=== PATIENT | female | born 1955 | race Caucasian/White ===

== ENCOUNTER → 2016-12-28 | Outpatient (CLI) | payer OTHER ==
[~2016-12-28] MED LIST: ALDACTONE25 MG PO; BACTRIM DS TAB1 EACH PO; LASIX 20 MG TAB20 MG PO; LIPITOR 20 MG T20 M1 PO
== END ==
LOC: RAD 14:03
DX: Z12.31 Encounter for screening mammogram for malignant neoplasm of breast (principal)

== ENCOUNTER → 2018-01-07 | Outpatient (CLI) | payer OTHER | LOC: RAD 11:07 | DX: Z12.31 Encounter for screening mammogram for malignant neoplasm of breast (principal) ==

== ENCOUNTER → 2019-01-10 | Outpatient (CLI) | payer OTHER | LOC: RAD 09:50 | DX: Z12.31 Encounter for screening mammogram for malignant neoplasm of breast (principal) ==

== ENCOUNTER → 2019-09-11 | Outpatient (CLI) | payer OTHER | LOC: CAT 10:27 | DX: Z13.6 Encounter for screening for cardiovascular disorders (principal); I25.10 Atherosclerotic heart disease of native coronary artery without angina pectoris; E78.00 Pure hypercholesterolemia, unspecified ==

== ENCOUNTER → 2020-01-27 | Outpatient (CLI) | payer OTHER | LOC: BC 09:46 | PROVIDERS: ATTEND Internal Medicine | DX: Z12.31 Encounter for screening mammogram for malignant neoplasm of breast (principal) ==

== ENCOUNTER → 2020-12-31 | Outpatient (CLI) | payer OTHER ==
[~2020-12-31] MED LIST changes: +BAYER CHEWABLE81 MG PO; +HYDROCODON-ACE1 EAC7 PO; +KEFLEX750 MG PO; +LASIX 80 MG TAB80 MG PO; +LIPITOR10 MG PO; +MS CONTIN15 MG PO; +PRESERVISION A1 EACH PO; +SPIRONOLACTONE100 M1 PO; +VITAMIN D350 MCG PO; +XALATAN2.5 ML OPHTHALMIC; +YUVAFEM10 MCG VAG
[2020-12-31 11:13] LABS: URINE BILIRUBIN NEGATIVE (Negative); URINE BLOOD NEGATIVE (Negative); URINE CLARITY CLEAR; URINE COLOR YELLOW; URINE GLUCOSE-RANDOM* NEGATIVE (Negative); URINE KETONES NEGATIVE (Negative); URINE NITRITE-REFLEX NEGATIVE (Negative); URINE PROTEIN (DIPSTICK) NEGATIVE (Negative); URINE UROBILINOGEN 0.2 E.U./dl (0.2-1.0)
[2020-12-31 11:14] LABS: HEMATOCRIT 37.4 % (37.0-47.0); HEMOGLOBIN 12.5 gm/dL (12.0-15.0); MCH 31.8 pg (26.0-34.0); MCHC 33.5 g/dL (28.0-37.0); MCV 94.7 fL (80.0-100.0); RBC 3.95 mil/uL (4.20-5.00); RDW 12.2 % (10.5-14.5); WBC 6.7 thou/uL (4.0-11.0)
[2020-12-31 11:15] LABS: URINE LEUKOCYTES-REFLEX 1+ (Negative)
[2020-12-31 11:21] LABS: ALBUMIN 3.8 g/dL (3.4-5.0); CALCIUM 9.6 mg/dL (8.5-10.1); POTASSIUM 3.5 mmol/L (3.5-5.1)
[2020-12-31 11:26] LABS: PROTIME 10.9 Seconds (10.5-12.1)
[2020-12-31 12:50] LABS: BACTERIA-REFLEX 1-9 Few /HPF (None Seen); CASTS None Seen /LPF (None Seen); CRYSTALS None Seen /LPF (None Seen); SQUAMOUS >10 Many /LPF (0-3); URINE RBC None Seen /HPF (NONE SEEN); URINE WBC-REFLEX 0-5 Rare /HPF (0-5)
--- NOTE | 2020-12-31 13:19 | EKG ---
[address] [address] ELECTROCARDIOGRAM REPORT Name: STACIEDWARDO [id number] Admission: 12/31/20 Attend Phys: Austyn Romo MD Discharge: Date of : 53 Report #: [id number] [facility] Test Date: 2020-12-31 Test Time: 11:09:17 Pat Name: EDWARDO SMALL Department: Room: Gender: F [employer]: JODEE : 1955 Requested By: Austyn Romo Order Number: [id number] : Freddy Auguste Measurements Intervals [place] Rate: 58 P: 57 VA: 161 QRS: 8 QRSD: 83 T: 53 QT: 423 QTc: 416 Interpretive Statements Sinus rhythm No previous ECG available for comparison Electronically Signed On 12-31-2020 13:19:06 CDT by Freddy Auguste [email or web address] <ELECTRONICALLY SIGNED> By: Freddy Auguste MD, [facility] 12/31/20 1319 1109 1109 Freddy Auguste MD, FACC /EPI
== END ==
LOC: PAC 10:24
PROVIDERS: ATTEND Orthopaedic Surgery
DX: Z01.812 Encounter for preprocedural laboratory examination (principal); Z01.810 Encounter for preprocedural cardiovascular examination; M17.11 Unilateral primary osteoarthritis, right knee

== ENCOUNTER 2021-01-06 06:24 | Observation (INO) | payer OTHER ==
[~2021-01-06] VITALS: Ht 162.6 cm; Wt 55.8 kg
[~2021-01-06 06:24] MED LIST changes: -BAYER CHEWABLE81 MG PO; -HYDROCODON-ACE1 EAC7 PO; -KEFLEX750 MG PO; -MS CONTIN15 MG PO
[2021-01-06 06:52] VITALS: BP 100/43
[2021-01-06 10:58] VITALS: BP 102/58
[2021-01-06 14:22] VITALS: BP 102/58
--- NOTE | 2021-01-06 15:09 | NUR ---
ASSESSMENT: CM REVIEWED CHART AND SPOKE WITH PT AT THE BEDSIDE. PT IS ALERT AND ORIENTED X4. PT IS S/P KNEE REPLACEMENT. PT REPORTS LIVING IN A HOUSE WITH HER SPOUSE. PT HAS TWO STEPS TO ENTER WITH HANDRAILS AND NO STEPS SHE HAS TO USE ONCE INSIDE. PT REPORTS THAT SHE HAS NO DME. PT IS NEEDING A WALKER FOR DISCHARGE AND HAS NO PREFERENCE OF DME COMPANY. CM CONTACTED [facility] AT [employer] AND PT CAN BE ISSUED A WALKER. CM NOTIFIED PHYSICAL THERAPY TO PLEASE ISSUE WALKER. PT REPORTS HAVING OUTPATIENT THERAPY ARRANGED TO BEGIN ON SUNDAY . PT REPORTS NO FURTHER NEEDS FROM CM.
[2021-01-06] MEDS ORDERED: BAYER CHEWABLE81 MG PO ×2 (15:10)
[2021-01-06] MEDS ORDERED: HYDROCODON-ACE1 EAC7 PO ×2 (15:11)
[2021-01-06] MEDS ORDERED: MS CONTIN15 MG PO ×2 (15:11)
[2021-01-06] MEDS ORDERED: KEFLEX750 MG PO ×2 (15:14)
--- NOTE | 2021-01-06 15:19 | NUR ---
ASSUMED PT CARE AT 1030 FROM PACU. PT IS ALERT & ORIENTED X4. PT HAS IV SITE ON R FA. PT HAS R TOTAL KNEE REPLACEMENT. PT IS ON ROOM AIR. PT HAS [employer] [facility] BILATERAL KNEE HIGH, SCD AND POLAR CARE. PT WORKED WITH PHYSICAL THERAPY AND DID GOOD TODAY. AWAITING FOR WALKER TO BE DELIVERED. PT FAMILY AT THE BEDSIDE. PT ON THE BED, BED ON THE LOWEST POSITION, SIDE RAILS UP, CALL LIGHT WITHIN REACH. WILL CONTINUE TO MONITOR PT. FOLLOW POC.
--- NOTE | 2021-01-11 15:47 | O ---
[facility] [place] [address] OPERATIVE REPORT Name: EDWARDO SMALL Room #: 445[facility]P [facility] Jia Oro#: [id number] Admission: 01/06/21 Attend Phys: Austyn Romo MD Discharge: 01/06/21 Date of : 53 Report #: [id number] THIS REPORT FOR: cc: Dangelo Díaz MD, Eric K. MD Abraham,Austyn Narayanan MD ~ DOC #: [id number] Austyn Romo MD PREOPERATIVE DIAGNOSIS: Right knee. POSTOPERATIVE DIAGNOSIS: Right knee. PROCEDURE: Right total knee arthroplasty using Navio robotic assistance. SURGEON: Austyn Romo MD. BOWLING BALL MOLD ASSEMBLER: Valerie Fisher PA-C. Indication for operations manager assistant, throughout the care extensive retraction, manipulation of the knee was required. This was supported by my operations manager assistant. ANESTHESIA: LMA with adductor canal block. IMPLANTS: [employer]osta [employer]hew size 4 Journey II BCS Oxinium femur, size 3 tibia, size 11 constrained polyethylene and size 32 patella. TOURNIQUET TIME: 51 minutes. ESTIMATED BLOOD LOSS: 25 mL. COMPLICATIONS: None. SPECIMENS: None. CONDITION UPON LEAVING THE OR: Stable. INDICATIONS FOR PROCEDURE: The patient is a 65-year-old female with right knee valgus osteoarthritis. She had failed conservative measures for this and after discussion with her, she elected for a right total knee arthroplasty. DESCRIPTION OF PROCEDURE: Risks, benefits, alternatives, complications were discussed in detail with the patient including but not limited to risk of anesthesia, risk of damage to nerves, arteries, blood vessels, risk for infection, bleeding, risk for continued knee pain, need for reoperation. Informed consent was obtained from the patient. Right knee was appropriately marked in the preoperative holding area. IV Ancef was given for preoperative [address] [address] OPERATIVE REPORT Name: EDWARDO SMALL Room #: 445[facility] Jia Oro#: [id number] Admission: 01/06/21 Attend Phys: Austyn Romo MD Discharge: 01/06/21 Date of : 53 Report #: [id number] antibiotics. She was brought to the operating room and placed in supine position on the operating table. LMA anesthesia was induced without complication. Tourniquet was placed on the right thigh. Right lower extremity was prepped and draped in normal sterile fashion. Timeout was performed properly identifying the patient and procedure as well as the instrumentation and implants. All in the operating room in agreement. Right lower extremity was exsanguinated, tourniquet was inflated. Tourniquet time was 51 minutes. Standard midline approach to the knee was made with 10 blade through the skin. Dissection was taken down sharply to the fascia. Deep flaps were developed medially and laterally. Fresh 10 blade was used to make a medial parapatellar arthrotomy and the knee was inspected. There was severe lateral compartment osteoarthritis with moderate medial and patellofemoral compartment osteoarthritis. ACL and PCL were removed sharply. Reference pins were placed in the femur and the tibia. The knee was then digitally mapped using the Connotate robotic system and the intraoperative plan was made. We sized the size 4 femur, size 3 tibia and a 10 spacer. After acceptance of the intraoperative plan, the distal femoral cut was made with Navio bur. Distal femoral cutting block was pinned in place and chamfer cuts were made. Attention was turned to the tibia. Remainder of the menisci removed with Bovie cautery. Tibial resection guide was pinned in place using Navio for placement. Tibial resection was made. Flexion and extension gaps were checked and found to have good balance in flexion and extension both medially and laterally. Tibia sized ____ size 3. Size 3 tibial trial was placed, pinned and punch. A size 4 femoral trial was placed and box cut was made. This was then trialed with a size 10 up to size 11 polyethylene. Size 11 polyethylene demonstrated good balance throughout range of motion of the knee. She did have slight laxity in deep flexion medially and it was felt we could make up for this with the final implant. The 9 mm of bone was removed from the posterior surface of the patella and a size 32 patellar trial button was placed. Knee was taken through range of motion, found to be stable, found to have good patellar tracking. Trial components were removed. Bone ends thoroughly irrigated with normal saline. A final size 3 tibia, size 4 Journey II BCS Oxinium femur and a size 32 patella were cemented in place using standard cementation techniques. While the cement cured, a periarticular injection consisting of morphine, ropivacaine, epinephrine, Toradol was placed around the knee joint capsule. After the cement cured, tourniquet was deflated. Hemostasis was obtained with Bovie cautery. A final size 11 constrained polyethylene was placed. A gram of vancomycin was placed deep in the joint. Fascia was closed with 0 Vicryl. Skin was closed with 2-0 Vicryl, 3-0 Monocryl. Dermabond and a BERENICE dressing was applied. The patient tolerated this procedure well and went to recovery room under care of Anesthesia postoperatively. Austyn Romo MD SMA/KHOI/IQB [address] [address] OPERATIVE REPORT Name: EDWARDO SMALL Room #: [facility] Jia Oro#: [id number] Admission: 01/06/21 Attend Phys: Austyn Romo MD Discharge: 01/06/21 Date of : 53 Report #: [id number] <ELECTRONICALLY SIGNED> By: Austyn Romo MD 01/11/21 1547 1026 [id number] Austyn Romo MD /nt
== END 2021-01-06 16:23 | disposition home or self-care (01) ==
LOC: OR 06:24 → TBA 09:16 → 4S 09:16 → OR 09:31 → 4S 10:42 → OR 12:15 → 4S 16:23
PROVIDERS: ADMIT Orthopaedic Surgery; ATTEND Orthopaedic Surgery
DX: M17.11 Unilateral primary osteoarthritis, right knee (principal)
CPT/HCPCS: 50010; 50101; 50415; 50954; 51130; 51225; 51320; 52001; 52282; 53000; 53078; 53365; 54118; 56527; 56528; 57095; 57103; 57110; 57127; 57179; 62110; 62900; 64042; 70005

== ENCOUNTER → 2021-03-08 | Day surgery (SDC) | payer OTHER ==
[~2021-03-08] VITALS: Ht 162.6 cm; Wt 54.4 kg
[~2021-03-08] MED LIST changes: +BAYER CHEWABLE81 MG PO; +HYDROCODON-ACE1 EAC7 PO; +KEFLEX750 MG PO; +MS CONTIN15 MG PO
[2021-03-08 08:10] VITALS: BP 123/66
[2021-03-08 10:10] VITALS: BP 123/66
--- NOTE | 2021-03-10 07:30 | O ---
[facility] [place] [address] OPERATIVE REPORT Name: EDWARDO SMALL Room #: REG [facility]#: [id number] Admission: 03/08/21 Attend Phys: Austyn Romo MD Discharge: Date of : 53 Report #: [id number] THIS REPORT FOR: cc: Dangelo Díaz MD, Eric K. MD Abraham, Scott M. MD ~ DATE OF SERVICE: 03/08/2021 PREPROCEDURE DIAGNOSES: Right knee total knee arthroplasty, arthrofibrosis. POSTPROCEDURE DIAGNOSES: Right knee total knee arthroplasty, arthrofibrosis. PROCEDURE: Right knee manipulation under anesthesia. SURGEON: Austyn Romo MD. ANESTHESIA: Monitored anesthesia care. COMPLICATIONS: None. ESTIMATED BLOOD LOSS: None. CONDITION POSTPROCEDURE: Stable. INDICATIONS FOR PROCEDURE: The patient is a 65-year-old female who is about 6 weeks out from a right total knee arthroplasty. She has plateaued with her physical therapy and it was felt that she has gone on to arthrofibrosis. We discussed treatment options and after discussion with her, she elected for manipulation under anesthesia. DESCRIPTION OF PROCEDURE: Risks, benefits, alternatives, complications were discussed in detail with the patient including but not limited to risk of anesthesia, risk of fracture, and need for further operation. Informed consent was obtained from the patient. The right knee was appropriately marked in the holding area. Procedure was performed in the PACU. Timeout was performed properly identifying the patient and procedure, all in the PACU were in agreement. MAC anesthesia was induced without complication and the knee was then examined and found to have 3 of extension to 85 of flexion. The knee was then manipulated with palpable and audible breakage of scar tissue. Final range of motion was 2 degrees to 125 degrees. X-ray was brought in and x-rays of AP and lateral of the knee were taken to verify that no intraoperative fracture was sustained as was the case. She was [facility] [address] [place] [address] OPERATIVE REPORT Name: EDWARDO SMALL Room #: REG [facility].#: [id number] Admission: 03/08/21 Attend Phys: Austyn Romo MD Discharge: Date of : 53 Report #: [id number] then awakened from anesthesia and taken to the recovery room under care of anesthesia. <ELECTRONICALLY SIGNED> By: Austyn Romo MD 03/10/21 0730 [id number] Austyn Romo MD /nt
== END | disposition home or self-care (01) ==
LOC: OR 07:16
PROVIDERS: ATTEND Orthopaedic Surgery
DX: M24.661 Ankylosis, right knee (principal); E78.00 Pure hypercholesterolemia, unspecified; H40.9 Unspecified glaucoma; Z98.890 Other specified postprocedural states; Z79.899 Other long term (current) drug therapy; Z96.651 Presence of right artificial knee joint; Z20.822 Contact with and (suspected) exposure to COVID-19
CPT/HCPCS: 50010; 50101; 62110; 62900; 70005

== ENCOUNTER → 2021-05-03 | Outpatient (CLI) | payer OTHER | LOC: BC 10:50 | PROVIDERS: ATTEND Internal Medicine | DX: Z12.31 Encounter for screening mammogram for malignant neoplasm of breast (principal); N64.89 Other specified disorders of breast ==